=== PATIENT | female | born 1975 | race Caucasian/White ===

== ENCOUNTER → 2019-02-21 | Outpatient (CLI) | payer BC ==
--- NOTE | 2019-02-23 12:01 | MM ---
Reason for exam: screening (asymptomatic). Last mammogram was performed 2 years and 6 months ago. History: Patient history of other cancer. Family history of breast cancer in paternal aunt at age 40. Cyst aspiration of the left breast, August 05, 2003. Took hormonal contraceptives for 6 months beginning at age 34. Physical Findings: A clinical breast exam by your physician is recommended on an annual basis and results should be correlated with mammographic findings. MG Screening Mammo w CAD Bilateral CC and MLO view(s) were taken. Prior study comparison: August 09, 2016, bilateral MG work up mamm w CAD BILAT. July 12, 2016, bilateral MG screening mammo w CAD. The breast tissue is heterogeneously dense. This may lower the sensitivity of mammography. No significant changes when compared with prior studies. ASSESSMENT: Benign, BI-RAD 2 RECOMMENDATION: Routine screening mammogram of both breasts in 1 year.
== END | disposition home or self-care (01) ==
LOC: RADMAMWWP 15:27
PROVIDERS: ATTEND Obstetrics & Gynecology
DX: Z12.31 Encounter for screening mammogram for malignant neoplasm of breast (principal); N91.2 Amenorrhea, unspecified
CPT/HCPCS: 36415; 77067; 82670; 83001; 83002

== ENCOUNTER 2019-07-02 07:58 | Day surgery (SDC) | payer BC ==
[2019-06-28 15:49] VITALS: BMI 26.5
[~2019-07-02 07:58] MED LIST: LACTATED RINGERS 1,000 ML IV SCH
[2019-07-02] MEDS ORDERED: LIDOCAINE 1% 20 ML VIAL (10MG/ML) FOR IV START INTRADERMA ONE (08:30)
[2019-07-02 08:47] VITALS: TEMP 98.3
[2019-07-02] MEDS ORDERED: PROPOFOL 10 MG/ML 20 ML VIAL IV ONE (09:08)
--- NOTE | 2019-07-02 09:10 | P.GSHP ---
History of Present Illness H&P Date: 07/02/19 Chief Complaint: History: Polyps This a 39-year-old female who presents today for colonoscopy. Patient has had previous colonoscopy with history of colon polyps. She presents today for colonoscopy. Past Medical History Past Medical History: GERD/Reflux, Osteoarthritis (OA) Additional Past Medical History / Comment(s): IBS-DIARRHEA, DDD WITH BACK, NECK AND SHOULDER PAIN, NO CARTILEDGE IN NECK, HX OF BROKEN TAIL BONE,, HX OF COLON POLYPS, HX KIDNEY STONE. History of Any Multi-Drug Resistant Organisms: None Reported Past Surgical History: Adenoidectomy, Appendectomy, Section, Tonsillectomy Additional Past Surgical History / Comment(s): D & C X2 (MISCARRIAGE X2) Past Anesthesia/Blood Transfusion Reactions: No Reported Reaction, Family History of Problems w/ Anesthesia, Motion Sickness Additional Past Anesthesia/Blood Transfusion Reaction / Comment(s): SISTER=PONV Past Psychological History: Anxiety Smoking Status: Never smoker Past Alcohol Use History: Rare Past Drug Use History: None Reported - Past Family History Mother Additional Family Medical History / Comment(s): EMPHYSEMA Father Family Medical History: Unable to Obtain Medications and Allergies Home Medications Medication Instructions Recorded Confirmed Type Diphenox-Atrop 2.5-0.025 mg 1 tab PO QID PRN 06/28/19 07/02/19 History [Lomotil] Ranitidine HCl [Zantac] 150 mg PO BID PRN 06/28/19 07/02/19 History traMADol HCL [Ultram] 50 mg PO Q6HR PRN 06/28/19 07/02/19 History Allergies Allergy/AdvReac Type Severity Reaction Status Date / Time No Known Allergies Allergy Verified 07/02/19 08:48 Surgical - Exam Vital Signs Temp Pulse Resp BP Pulse Ox 98.3 F 71 16 109/66 98 07/02/19 08:30 07/02/19 08:30 07/02/19 08:30 07/02/19 08:30 07/02/19 08:30 - General well developed, well nourished, no distress - Eyes PERRL - ENT normal pinna - Neck no masses - Respiratory normal expansion - Cardiovascular Rhythm: regular - Abdomen Abdomen: soft, non tender Assessment and Plan Assessment: History of colon polyps. We'll perform colonoscopy.
--- NOTE | 2019-07-02 09:25 | P.OP ---
Date of Procedure: 07/02/19 Preoperative Diagnosis: History of colon polyps Postoperative Diagnosis: Normal colonoscopy Procedure(s) Performed: Colonoscopy Anesthesia: MAC Surgeon: Rupesh Scott Pathology: none sent Condition: stable Disposition: PACU Description of Procedure: PROCEDURE: The patient was placed on the endoscopy table in the lateral position. Digital rectal examination was performed which revealed no abnormalities. . Flexible colonoscope was then placed in the patient's anus and passed throughout the entire colon. The ileocecal valve was visualized. The cecum, ascending, transverse, descending and sigmoid colon were normal. The rectum was normal as well. There were no masses, polyps or diverticula noted in the entire colon. SUMMARY OF FINDINGS: Normal colonoscopy.
[2019-07-02 10:01] VITALS: BP 132/70; PULSE 72; RESP 18
== END 2019-07-02 09:55 | disposition home or self-care (01) ==
LOC: ORWHC2ENDO 07:58
PROVIDERS: ATTEND Surgery
DX: Z12.11 Encounter for screening for malignant neoplasm of colon (principal); Z86.010 Personal history of colon polyps; K21.9 Gastro-esophageal reflux disease without esophagitis; K58.9 Irritable bowel syndrome, unspecified; M19.90 Unspecified osteoarthritis, unspecified site; Z79.899 Other long term (current) drug therapy; Z83.6 Family history of other diseases of the respiratory system; Z87.442 Personal history of urinary calculi; Z87.81 Personal history of (healed) traumatic fracture; M25.519 Pain in unspecified shoulder; M50.30 Other cervical disc degeneration, unspecified cervical region; M54.9 Dorsalgia, unspecified
CPT/HCPCS: 81025; J2704; G0105

== ENCOUNTER → 2022-07-29 | Outpatient (CLI) | payer BC ==
--- NOTE | 2022-07-30 09:02 | US ---
EXAMINATION TYPE: US thyroid st tissue head/neck DATE OF EXAM: 07/29/2022 COMPARISON: Ultrasound 2012 CLINICAL HISTORY: R22.0 SWELLING, MASS AND LUMP. Hx thyroid nodules with last ultrasound x 10 years a go. Not on thyroid meds. GLAND SIZE: Right Lobe: 4.7 x 1.6 x 1.6 cm Overall Parenchyma: heterogenous Left Lobe: 4.4 x 1.6 x 1.5 cm Overall Parenchyma: heterogeneous Isthmus Thickness: 0.2 cm NODULES RIGHT: # of nodules measured on right: 0 LEFT: # of nodules measured on left: 1 1. 1.4 X 0.8 x 1.1 cm, lower mid, solid or almost completely solid, hypoechoic nodule, which is hailey ler than wide, with lobulated or irregular margins, without echogenic foci. Prior size: prior ultrasound in 2012 measured nodules separately ISTHMUS: # of nodules measured in the isthmus: 0 Bilateral neck scanned, no evidence of lymphadenopathy. Persistent heterogeneous normal-sized thyroid with stable hypoechoic lower pole left thyroid nodule a ccounting for technical differences. IMPRESSION: As above
== END | disposition home or self-care (01) ==
LOC: RADUSWWP 14:51
PROVIDERS: ATTEND Family Medicine
DX: E04.1 Nontoxic single thyroid nodule (principal)
CPT/HCPCS: 76536

== ENCOUNTER → 2022-08-19 | Outpatient (CLI) | payer BC ==
--- NOTE | 2022-08-20 10:14 | MM ---
Reason for Exam: Screening (asymptomatic). Last mammogram was performed 3 year(s) and 5 month(s) ago. Patient History: Menarche at age 11. First Full-Term at age 19. Other cancer. Hormonal Contraceptives for 6 months starting at age 34. 08/05/2003, Cyst Aspiration on the Left side. Paternal aunt had breast cancer, age 40. Last menstrual period: 08/15/2021 Risk Values: Francy 5 year model risk: 0.8%. NCI Lifetime model risk: 8.4%. Prior Study Comparison: 07/12/2016 Bilateral Screening Mammogram, [facility]. 08/09/2016 Bilateral Diagnostic Mammogram, [facility]. 02/21/2019 Bilateral Screening Mammogram, [facility]. Tissue Density: There are scattered fibroglandular densities. Findings: Analyzed By CAD. There is no suspicious group of microcalcifications or new suspicious mass in either breast. Overall Assessment: Negative, BI-RAD 1 Management: Screening Mammogram of both breasts in 1 year. A clinical breast exam by your physician is recommended on an annual basis and results should be correlated with mammographic findings. [facility] will attempt to contact patient to return for supplemental views and ultrasound if indicated. Electronically signed and approved by: Jackson Chaves DO
== END | disposition home or self-care (01) ==
LOC: RADMAMWWP 16:21
PROVIDERS: ATTEND Obstetrics & Gynecology
DX: Z12.31 Encounter for screening mammogram for malignant neoplasm of breast (principal); Z80.3 Family history of malignant neoplasm of breast
CPT/HCPCS: 77067

== ENCOUNTER → 2023-11-03 | Outpatient (CLI) | payer BC ==
--- NOTE | 2023-11-05 14:39 | BD ---
EXAMINATION TYPE: Axial Bone Density DATE OF EXAM: 11/03/2023 CLINICAL HISTORY: 48 years old Female. ICD-10 CODE: M54.2 CERVICALGIA Height: 5 ft 3 in Weight: 166 FRAX RISK QUESTIONS: Alcohol (3 or more units per day): no Family History (Parent hip fracture): no Glucocorticoids (More than 3mos): no (Ex: prednisone, prednisolone, methylprednisolone, dexamethasone, and hydrocortisone). History of Fracture in Adulthood: yes Secondary Osteoporosis: 1. Type 1 Diabetes: no 2. Hyperthyroidism: no 3. Menopause before 45: yes 4. Malnutrition: no 5. Chronic liver disease: no Rheumatoid Arthritis: no Current Tobacco Use: no RISK FACTORS HISTORY OF: Surgery to Spine/Hip(right/left)/Wrist (right/left): no Family History of Osteoporosis: yes Active: yes Diet low in dairy products/other sources of calcium: no Postmenopausal woman: yes Take estrogen and/or progesterone medications: no Lost more than 2 inches in height since high school: no Frequent falls: no Poor Health: good Hyperparathyroidism: no Adrenal Insufficiency: no MEDICATIONS: Additional Medications: tramodol, Additional History: EXAM MEASUREMENTS: Bone mineral densitometry was performed using the [employer] System. Bone mineral density as measured about the Lumbar spine is: ----- L1-L4(G/cm2): 1.007 T Score Values are as follows: ----- L1: -1.5 ----- L2: -1.7 ----- L3: -1.0 ----- L4: -1.7 ----- L1-L4: -1.4 Z Score Values are as follows: ----- L1: -1.6 ----- L2: -1.8 ----- L3: -1.0 ----- L4: -1.7 ----- L1-L4: -1.5 prev done elsewhere Bone mineral density about the R hip (g/cm2): 0.804 Bone mineral density about the L hip (g/cm2): 0.802 T Score values are as follows: -----R Neck: -1.7 -----L Neck: -1.7 -----R Total: -1.3 -----L Total: -1.0 Z Score values are as follows: -----R Neck: -1.2 -----L Neck: -1.2 -----R Total: -1.1 -----L Total: -0.9 prev done elsewhere FRAX%s: The graph provided illustrates a 4.5 % chance for a major osteoporotic fx and a 0.5 % chance for the hips probability for fx in 10 years time. IMPRESSION: Osteopenia (T Score between -2.5 and -1). There is slightly increased risk of fracture and the patient may be considered for treatment. Re-Screen 2-5 years. NOTE: T-SCORE=SD OF THE YOUNG ADULT MEAN.
== END | disposition home or self-care (01) ==
LOC: RADBDWWP 15:58
PROVIDERS: ATTEND Family Medicine
DX: M85.89 Other specified disorders of bone density and structure, multiple sites (principal); M54.2 Cervicalgia; Z78.0 Asymptomatic menopausal state
CPT/HCPCS: 77080

== ENCOUNTER → 2023-11-10 | Outpatient (CLI) | payer BC ==
--- NOTE | 2023-11-11 20:34 | MM ---
Reason for Exam: Screening (asymptomatic). Last mammogram was performed 1 year(s) and 3 month(s) ago. Patient History: Menarche at age 11. First Full-Term at age 19. Postmenopausal. Other cancer. Hormonal Contraceptives for 6 months starting at age 34. 08/05/2003, Cyst Aspiration on the Left side. Paternal aunt had breast cancer, age 40. Risk Values: Francy 5 year model risk: 0.8%. NCI Lifetime model risk: 8.2%. Prior Study Comparison: 08/09/2016 Bilateral Diagnostic Mammogram, [facility]. 02/21/2019 Bilateral Screening Mammogram, [facility]. 08/19/2022 Bilateral MG screening mammo w CAD, [facility]. Tissue Density: There are scattered fibroglandular densities. Findings: Analyzed By CAD. There is no suspicious group of microcalcifications or new suspicious mass in either breast. Overall Assessment: Negative, BI-RAD 1 Management: Screening Mammogram of both breasts in 1 year. . Patient should continue monthly self-breast exams. A clinical breast exam by your physician is recommended on an annual basis. This exam should not preclude additional follow-up of suspicious palpable abnormalities. Note on Francy scores and lifetime risk: 1. A Francy score greater than 3% is considered moderate risk. If this is the case, consider specialist referral to assess eligibility for a risk reducing agent. 2. If overall lifetime risk for the development of breast cancer is 20% or higher, the patient may qualify for future screening with alternating mammogram and breast MRI. Electronically signed and approved by: Gena Styles M.D. Radiologist
== END | disposition home or self-care (01) ==
LOC: RADMAMWWP 16:45
PROVIDERS: ATTEND Obstetrics & Gynecology
DX: Z12.31 Encounter for screening mammogram for malignant neoplasm of breast (principal); Z80.3 Family history of malignant neoplasm of breast; Z78.0 Asymptomatic menopausal state
CPT/HCPCS: 77067

== ENCOUNTER → 2024-04-03 | Outpatient (CLI) | payer BC ==
--- NOTE | 2024-04-04 07:42 | XR ---
EXAMINATION TYPE: XR chest 2V DATE OF EXAM: 04/03/2024 COMPARISON: NONE TECHNIQUE: PA and lateral views submitted. HISTORY: Cough FINDINGS: The lungs are clear and there is no pneumothorax, pleural effusion, or focal pneumonia. Heart size normal and no overt failure. Osseous structures demonstrate hypertrophic and degenerative changes of the spine. Hyperinflation suggestive of COPD or asthma. Subsegmental linear changes left lung base mo st of focal scarring or atelectasis. IMPRESSION: 1. No acute process.
== END | disposition home or self-care (01) ==
LOC: RADXRMAIN 17:21
PROVIDERS: ATTEND Family Medicine
DX: R05.9 Cough, unspecified (principal)
CPT/HCPCS: 71046

== ENCOUNTER → 2025-01-15 | Outpatient (CLI) | payer BC ==
--- NOTE | 2025-01-15 19:14 | CT ---
EXAMINATION TYPE: CT sinus wo con DATE OF EXAM: 01/15/2025 6:29 PM COMPARISON: None. CLINICAL INDICATION: Female, 49 years old with history of J32.0 Chronic maxillary sinusitis; , sinus congestion TECHNIQUE: Multiple thin axial images were obtained through the paranasal sinuses. Additional coronal and sagittal reformatted images were submitted for evaluation. Contrast used: none Oral contrast used: none CT DLP: 468 mGycm, Automated exposure control for dose reduction was used. FINDINGS: Frontal sinuses: Normally developed and aerated. Frontal Recess: Clear Maxillary Sinuses: Normally developed and aerated. Maxillary Infundibula([facility]): clear, No Kenny cells identified. Ethmoid sinuses: Normally developed and aerated. Ethmoidal notch: Protected and abutting the lateral lamina. Sphenoid sinuses: Normally developed and aerated. There is sellar sphenoid sinus pneumatization with out evidence of dehiscence. No dehiscence of carotid canal. No evidence of optic nerve dehiscence wi thin the sphenoid sinus. Sphenoethmoidal recesses: Clear. Nasal septum: Slight rightward deviation inferiorly with bony spurring towards the right inferior tur binate. Middle portion is leftward deviated slightly. Nasal Turbinates: Mucosal thickening most pronounced in the middle and inferior turbinates. Mastoid air cells & middle ears: The air cells are clear. The middle ears are grossly unremarkable. Modified Soft tissues & Brain: Partially seen without gross abnormality. Globes are intact. Other: Cribriform plate demonstrates symmetric Keros classification type 2 cribriform plate. No evidence of bony dehiscence of skull base. Lamina papyracea is intact without evidence of remote orbital fracture or orbital prolapse into the e thmoid sinus. IMPRESSION: 1. No significant mucosal sinus disease. 2. The ostiomeatal units, frontonasal and sphenoethmoidal recesses are clear. [facility], , 01/15/2025 7:12 PM
== END | disposition home or self-care (01) ==
LOC: RADCTMAIN 18:01
PROVIDERS: ATTEND Otolaryngology
DX: J32.0 Chronic maxillary sinusitis (principal); J34.2 Deviated nasal septum
CPT/HCPCS: 70486

== ENCOUNTER → 2025-02-05 | Outpatient (CLI) | payer BC ==
--- NOTE | 2025-02-05 13:17 | MM ---
Reason for Exam: Clinical finding. Last mammogram was performed 1 year(s) and 3 month(s) ago. Indicated Problems: Pain of the left side for 3 Week(s) : lt rib was out causing pain. Patient History: Menarche at age 11. First Full-Term at age 19. Postmenopausal. Hormonal Contraceptives for 6 months starting at age 34. 08/05/2003, Cyst Aspiration on the Left side. Paternal aunt had breast cancer, age 40. Risk Values: Francy 5 year model risk: 0.9%. NCI Lifetime model risk: 8.0%. Tissue Density: The breasts are heterogeneously dense, which may obscure small masses. Findings: Analyzed By CAD. No suspicious new mass or distortion in either breast. Benign-appearing bilateral axillary lymph nodes are redemonstrated. Overall Assessment: Incomplete: need additional imaging evaluation, BI-RAD 0 Management: Diagnostic Breast Ultrasound of the left breast. Targeted ultrasound left breast due to focal pain. Results were given to the patient verbally at the time of exam. Patient should continue monthly self-breast exams. A clinical breast exam by your physician is recommended on an annual basis. This exam should not preclude additional follow-up of suspicious palpable abnormalities. Note on Francy scores and lifetime risk: 1. A Francy score greater than 3% is considered moderate risk. If this is the case, consider specialist referral to assess eligibility for a risk reducing agent. 2. If overall lifetime risk for the development of breast cancer is 20% or higher, the patient may qualify for future screening with alternating mammogram and breast MRI. [facility], , 02/05/2025 1:14 PM. Electronically signed and approved by: Lino Rankin M.D.
--- NOTE | 2025-02-05 13:54 | USB ---
Reason for Exam: Clinical finding. Patient History: Menarche at age 11. First Full-Term at age 19. Postmenopausal. Hormonal Contraceptives for 6 months starting at age 34. 08/05/2003, Cyst Aspiration on the Left side. Paternal aunt had breast cancer, age 40. Risk Values: Francy 5 year model risk: 0.9%. NCI Lifetime model risk: 8.0%. Technique: Method: Targeted. Prior Study Comparison: 02/21/2019 Bilateral Screening Mammogram, [facility]. 08/19/2022 Bilateral MG screening mammo w CAD, [facility]. 11/10/2023 Bilateral MG screening mammo w CAD, [facility]. Findings: The lower section of the breast of the left breast, the axilla of the left breast and the retroareolar of the left breast were scanned. Targeted ultrasound was performed. Prominent ducts subareolar region are seen. There is tubular shaped structure lateral aspect subareolar region with internal echoes could reflect debris-filled prominent duct. No vascular solid mass. Overall Assessment: Probably benign, BI-RAD 3 Management: Diagnostic Breast Ultrasound of the left breast in 6 months. Precautionary short-term diagnostic left breast ultrasound follow-up. A clinical breast exam by your physician is recommended on an annual basis and results should be correlated with mammographic findings. This exam should not preclude additional follow-up of suspicious palpable abnormalities. Results were given to the patient verbally at the time of exam. [facility], , 02/05/2025 1:51 PM. Electronically signed and approved by: Lino Rankin M.D.
== END | disposition home or self-care (01) ==
LOC: RADMAMWWP 12:34
PROVIDERS: ATTEND Family Medicine
DX: R92.333 Mammographic heterogeneous density, bilateral breasts (principal); N64.4 Mastodynia; Z78.0 Asymptomatic menopausal state; Z80.3 Family history of malignant neoplasm of breast; Z92.0 Personal history of contraception
CPT/HCPCS: 77062; 77066

== ENCOUNTER → 2025-02-20 | Outpatient (CLI) | payer BC ==
[2025-02-21 15:10] LABS: Aureo. pullulans IgE <0.10 kU/L (<0.10); Aureo. pullulans IgE Class CLASS 0; Johnson Grass IgE Class CLASS 0; Rhizopus nigricans IgE <0.10 kU/L (<0.10); Rhizopus nigricans IgE Class CLASS 0; Timothy Grass IgE <0.10 kU/L (<0.10); Timothy Grass IgE Class CLASS 0
[2025-02-21 15:11] LABS: Candida albicans IgE Class CLASS 0; Com. Pigweed IgE <0.10 kU/L (<0.10); Com. Pigweed IgE Class CLASS 0; Cottonwood IgE <0.10 kU/L (<0.10); English Plantain IgE Class CLASS 0; Epicoccum purpurascens Class CLASS 0; Epicoccum purpurascens IgE <0.10 kU/L (<0.10); Lamb's Quarter IgE <0.10 kU/L (<0.10); Lamb's Quarter IgE Class CLASS 0; Mucor racemosus IgE <0.10 kU/L (<0.10); Mucor racemosus IgE Class CLASS 0; S.rostrata/Helminth Class CLASS 0; S.rostrata/Helminth IgE <0.10 kU/L (<0.10); Sycamore(Mpl.Lf) IgE <0.10 kU/L (<0.10); Sycamore(Mpl.Lf) IgE Class CLASS 0; Walnut Tree IgE <0.10 kU/L (<0.10); Walnut Tree IgE Class CLASS 0; White Ash IgE Class CLASS 0
[2025-02-21 15:18] LABS: Alternaria alternata IgE <0.10 kU/L; Aspergillus fumagatus IgE <0.10 kU/L; Birch IgE <0.10 kU/L; Cat Epith & Dander IgE <0.10 kU/L; Cladosporian herbarum IgE <0.10 kU/L; Cockroach IgE <0.10 kU/L; Dermato. farinae IgE <0.10 kU/L; Dog Dander IgE <0.10 kU/L; Maple (Box Elder) IgE <0.10 kU/L; Oak IgE <0.10 kU/L; Ragweed,Common IgE <0.10 kU/L
== END | disposition home or self-care (01) ==
LOC: LABWHC1 16:21
PROVIDERS: ATTEND Otolaryngology
DX: J30.89 Other allergic rhinitis (principal)
CPT/HCPCS: 36415; 82785; 86003